=== PATIENT | male | born 1950 | race Caucasian/White ===

== ENCOUNTER 2019-04-05 20:11 | Emergency (ER) | payer OTHER, MEDICARE ==
[2019-04-05] MEDS ORDERED: NITROGLYCERIN 0.4 MG TAB SL ONE (20:23)
[2019-04-05] MEDS: NITROGLYCERIN 0.4 MG TAB SL PRN ×2 (20:26→20:33)
[2019-04-05 20:29] VITALS: TEMP 97.8
[2019-04-05] MEDS ORDERED: TICAGRELOR 90 MG TAB PO ONE ×3 (20:29→20:34)
[2019-04-05] MEDS ORDERED: ASPIRIN 81 MG CHEWABLE CTB PO STA (20:33)
[2019-04-05] MEDS ORDERED: SODIUM CHLORIDE 0.9% FLUSH 10 ML SOL IV PRN (20:33)
[2019-04-05] MEDS ORDERED: HEPARIN SODIUM 5000 U/ML SOL IV ONE (20:35)
[2019-04-05] MEDS ORDERED: HEPARIN SODIUM 5000 U/ML SOL ONE (20:36)
[2019-04-05 20:39] LABS: BASOPHILS % (AUTO) 1 % (0-3); EOSINOPHILS % (AUTO) 3 % (0-9); HEMATOCRIT 48 % (39-53); HEMOGLOBIN 15.8 gm/dl (13.5-17.7); MEAN CORPUSCULAR HGB CONC 32.9 gm/dl (32.0-36.0); MEAN CORPUSCULAR VOLUME 94 fL (80-100); NEUTROPHILS % (AUTO) 68.2 % (37-80)
[2019-04-05] MEDS ORDERED: ASPIRIN 81 MG CHEWABLE CTB ONE (20:47)
[2019-04-05 20:52] LABS: INR 1.04 (0.86-1.12)
[2019-04-05 21:01] LABS: CALCIUM 8.6 mg/dl (8.5-10.1); CARBON DIOXIDE 24.3 mEq/L (21-32); CREATININE 1.25 mg/dl (0.80-1.30); POTASSIUM 3.9 mMol/L (3.5-5.1); TROP I 0.038 ng/ml (0.000-0.056)
[2019-04-05 21:28] VITALS: BP 136/80; PULSE 50; RESP 18; O2SAT 96
== END 2019-04-05 20:55 | disposition short-term general hospital (02) | DRG 282 ==
LOC: ED 20:11
DX: I21.02 ST elevation (STEMI) myocardial infarction involving left anterior descending coronary artery (principal)
CPT/HCPCS: 71045; 80048; 82550; 83880; 84484; 85025; 85610; 85730; 93005; 96374; 99284; 99291; J1644; A9270-GY